=== PATIENT | male | born 1965 | race Caucasian/White ===

== ENCOUNTER 2025-04-02 15:13 | Emergency (ER) | payer OTHER ==
[2025-04-02] MEDS ORDERED: Acetaminophen 500 MG TAB ONE (15:42)
[2025-04-02] MEDS ORDERED: Ibuprofen 800 MG TAB ONE (15:42)
== END 2025-04-02 16:17 ==
LOC: ERS 15:13 → EEVIPCON 15:13 → ERS 16:17
DX: S80.01XA Contusion of right knee, initial encounter (principal); I10 Essential (primary) hypertension; E03.9 Hypothyroidism, unspecified; Z87.891 Personal history of nicotine dependence; Z79.899 Other long term (current) drug therapy; Z79.890 Hormone replacement therapy; W18.30XA Fall on same level, unspecified, initial encounter
CPT/HCPCS: 90471; 90715